=== PATIENT | male | born 1935 | race Caucasian/White ===

== ENCOUNTER → 2017-10-20 | Outpatient (CLI) | END | disposition home or self-care (01) ==

== ENCOUNTER → 2017-10-27 | Outpatient (CLI) | END | disposition home or self-care (01) ==

== ENCOUNTER 2017-10-30 07:16 | Inpatient (IN) | END 2017-11-01 14:25 | disposition home health service (06) | DRG 470 ==

== ENCOUNTER → 2017-11-10 | Outpatient (CLI) | END | disposition home or self-care (01) ==

== ENCOUNTER → 2017-12-08 | Outpatient (CLI) | END | disposition home or self-care (01) ==

== ENCOUNTER → 2018-01-19 | Outpatient (CLI) | END | disposition home or self-care (01) ==